=== PATIENT | female | born 1975 | race African-American/Black ===

== ENCOUNTER 2020-10-27 09:42 | Emergency (ER) | payer OTHER ==
[~2020-10-27] VITALS: Ht 177.8 cm; Wt 107.5 kg
[2020-10-27] MEDS ORDERED: ULTRAM50 MG PO (10:06)
[2020-10-27] MEDS ORDERED: IBUPROFEN400 MG PO (10:06)
== END 2020-10-27 10:27 | disposition home or self-care (01) ==
LOC: ER 10:22
DX: M25.561 Pain in right knee (principal); M54.5 Low back pain; I10 Essential (primary) hypertension; F17.210 Nicotine dependence, cigarettes, uncomplicated
CPT/HCPCS: 99282

== ENCOUNTER → 2020-12-13 | Emergency (ER) | payer OTHER ==
[~2020-12-13] MED LIST: IBUPROFEN400 MG PO; ULTRAM50 MG PO
== END | disposition left against medical advice (07) ==
LOC: ER 15:12
DX: R07.9 Chest pain, unspecified (principal)